=== PATIENT | female | born 1980 ===

== ENCOUNTER 2020-11-04 19:53 | Emergency (ER) | payer SELFPAY ==
[2020-11-04 20:07] VITALS: BP 140/70; PULSE 93; RESP 18; TEMP 36.7; O2SAT 99; BMI 31.7
--- NOTE | 2020-11-04 20:38 | ED_ITS ---
HPI - Extremity Injury (Lower) General Chief Complaint: Extremity Injury, Lower Stated Complaint: Leg pain Time Seen by Provider: 11/04/20 20:13 Source: patient Mode of arrival: ambulatory History of Present Illness HPI Narrative: 40-year-old female with a past medical history of sciatica presenting to the ED complaining of acute on chronic left-sided low back pain radiating down left lower extremity x2 weeks. Admits to similar symptoms in the past with her sciatic up. Denies new or recent injury/trauma or falls. Admits to associated numbness/tingling down LLE. Denies weakness, urinary incontinence/retention, fecal incontinence, fever, chills Related Data Allergies Allergy/AdvReac Type Severity Reaction Status Date / Time No Known Allergies Allergy Verified 11/04/20 20:07 Review of Systems Review of Systems: Constitutional: No Fever, No Chills Cardiovascular: No Chest Pain, No SOB Respiratory: No Cough Gastrointestinal: No Nausea, No Abdominal pain Genitourinary: No Hematuria, No Urinary Incontinence/retention Musculoskeletal: +back pain, No Myalgias, No Joint Swelling Skin: No Skin Lesions, No rash Neuro: No Weakness, + Numbness, + Paresthesias Yes all other systems are reviewed and are negative Neurologic: Denies Sensory deficit (Neuro) [facility] Past Medical History Attestation statement: The following information was validated with the patient. Medical History (Updated 11/04/20 @ 20:47 by RENETTA Franco) Sciatica Social History Social History Advance Directives: No Physical Exam Vital Signs: Vital Signs: Last Vital Signs Temp 98.1 F 11/04/20 20:07 Pulse 93 11/04/20 20:07 Resp 18 11/04/20 20:07 BP 140/70 H 11/04/20 20:07 Pulse Ox 99 11/04/20 20:07 Body Mass Index 31.7 Const: General: cooperative and healthy appearing Orientation/consciousness: patient oriented x3 Limitations: no limitations HENMT: Head: Yes normal to inspection and Yes atraumatic Ears: hearing grossly normal bilaterally General nose exam: Normal external nose present Face and sinus: Yes normal facial exam Eyes: General: appearance normal, both eyes and all related structures EOM: EOMs intact bilaterally Neck: Other: No midline cervical spinous tenderness/step-off Neck: Yes normal visual inspection Resp: Effort & Inspection: normal respiratory effort and no respiratory distress Cardio: Rate: regular rate GI: Inspection: Yes normal to inspection Palpation (GI): Soft to palpation, nontender, no guarding and not rigid Back/Spine/Pelvis: Other: No midline thoracic/lumbar spinous tenderness or jonathon p-off/deformity. + left-sided lower lumbar MSK/buttock tenderness to palpation Skin: Rashes: no rashes Wounds: no wounds Neuro: Other: No saddle anesthesia General: patient oriented x3, tone normal and moves all extremities Gait exam (Neuro): Normal gait present Motor exam (neuro): 5/5 motor strength present throughout Sensory Exam: No Sensory deficit (Neuro) Extrem: General: Yes normal to inspection MDM - Extremity Injury (Lower) MDM Narrative Medical decision making narrative: 40-year-old female with a past medical history of sciatica presenting to the ED complaining of acute on chronic left- sided low back pain radiating down left lower extremity x2 weeks. On exam VSS, NAD/ill-appearing, physical exam as above. No midline spinous tenderness throughout, no red flag symptoms. No saddle anesthesia. Likely MSK pain/sciatica. Low concern for cauda equina/cord compression Medical Records Attestation: I reviewed the patient's medical records. Lab Data Attestation: I reviewed the patient's lab results. Discharge Plan Discharge Clinical Impression: Sciatica Patient Disposition: Home, Self-Care
[2020-11-04] MEDS: Lidocaine 4 % Patch ADH..PATCH 1 PATCH TRANSDERMA (20:40)
[2020-11-04] MEDS: Cyclobenzaprine HCl 5 MG TABLET PO (20:41)
[2020-11-04] MEDS: Ketorolac Tromethamine 15 MG/ML VIAL 30 MG IM (20:41)
== END 2020-11-04 21:16 | disposition home or self-care (01) ==
PROVIDERS: Emergency Provider Emergency Medicine
DX: M54.42 Lumbago with sciatica, left side (principal)
CPT/HCPCS: 96372; 99283; 99284; J1885

== ENCOUNTER 2023-11-16 17:20 | Emergency (ER) | payer MEDICAID, SELFPAY ==
--- NOTE | 2023-11-16 17:28 | ED.GENADULT ---
HPI - General Adult General Chief complaint: Skin/Abscess/Foreign Body Stated complaint: Cyst Time Seen by Provider: 11/16/23 18:18 Source: patient Mode of arrival: ambulatory Limitations: no limitations History of Present Illness ED Provider: Vega Schrader PA-C HPI narrative: 43 yo female presents to the ER for evaluation of a very painful cyst on the upper portion of her buttocks that has been getting worse for the last 3-4 days. She recently got back from camping. Denies insect or tick bites in the area. She reports the pain is so severe she can barely sit. She denies any drainage from the area. No fever but she did have some chills. Denies history of pilonidal cyst in the past. Not diabetic. MD complaint: painful cyst on buttocks Onset (ago): day(s) (4) Location: buttocks Severity: severe Severity scale (1-10): 10 Quality: constant Pain Consistency: constant Relieving factors: none Exacerbating factors: movement Associated symptoms: denies other symptoms Related Data Previous Rx's ?Medication ?Instructions ?Recorded acetaminophen 500 mg tablet 500 mg PO Q6H PRN pain or fever 11/04/20 (Tylenol Extra Strength) #20 tabs cyclobenzaprine 5 mg tablet 5 mg PO Q8H PRN pain (scale score 11/04/20 7-10) 5 days #14 tabs lidocaine 5 % topical patch 1 patch topical DAILY PRN pain #30 11/04/20 (Lidoderm) ea naproxen 500 mg tablet 500 mg PO BID PRN pain 10 days #20 11/04/20 tabs cephalexin 500 mg capsule 500 mg PO Q6H 7 days #28 caps 11/16/23 doxycycline hyclate 100 mg tablet 100 mg PO BID #14 tabs 11/16/23 ibuprofen 600 mg tablet 600 mg PO Q8H PRN pain #10 tabs 11/16/23 oxycodone 5 mg tablet 5 mg PO Q6H PRN severe pain (scale 11/16/23 score 7-10) #10 tabs Allergies Allergy/AdvReac Type Severity Reaction Status Date / Time No Known Allergies Allergy Verified 11/16/23 17:31 Review of Systems Review of Systems: Yes all other systems are reviewed and are negative PMFSH Past Medical History Medical History (Updated 11/17/23 @ 00:01 by Background Danielle) Sciatica Social History Social History Advance Directives: No Advance Directives Information Provided: Yes Do you have a plan to hurt others: No Plan Physical Exam ED Vital Signs: Vital Signs - 24 hr 11/16/23 17:29 11/16/23 18:00 11/16/23 18:59 Temperature 97.4 F 98 F 98 F Pulse Rate 115 H 96 96 Respiratory Rate 18 18 18 Blood Pressure 130/77 126/77 126/77 Pulse Oximetry 98 98 98 Oxygen Delivery Method Room Air Room Air Room Air BMI result Body Mass Index 32.6 Appearance: Alert. Oriented X3. laying prone on the stretcher, uncomfortable HEENT: normal inspection CVS: Normal heart rate and rhythm. Pulses normal. Respiratory: No respiratory distress. Skin: Skin warm and dry. Normal skin color. Normal skin turgor. No rashes. On the gluteal cleft there is a 3cm area of tenderness and fluctuance surrounded by 5cm of erythema extending to the right buttock more than the left. mild induration Extremities: no peripheral edema x4. Neuro: Oriented X 3. No motor deficit. No sensory deficit. Course Course Course Narrative: This is an RME done by RENETTA Bertrand: Additional HPI, ROS, PE not included below will be deferred to primary provider. 43 year old female with concerns of cyst in buttocks crease for past 4 days. She rates the pain 10/10. Appearance: Alert.? Oriented X3.? No acute cardiopulmonary distress distress.? Head: Normocephalic, atraumatic, no step-offs or deformities Neck: Normal inspection.? Neck supple.? CVS: Pulses normal.? Respiratory: No respiratory distress.? Abdomen: Soft and nontender.? Skin: ? Normal skin color. Extremities: 5/5 strength to bilateral upper and lower extremities Neuro: Oriented X 3.? No motor deficit.? No sensory deficit. Medications Administered Discontinued Medications Generic Name Dose Route Start Last Admin Trade Name Freq PRN Reason Stop Dose Admin Cephalexin HCl 500 mg 11/16/23 18:19 11/16/23 18:23 Cephalexin 500 Mg Capsule PO 11/16/23 18:20 500 mg ONCE ONE Administration Doxycycline Monohydrate 100 mg 11/16/23 18:19 11/16/23 18:23 Doxycycline Monohydrate 100 Mg Capsule PO 11/16/23 18:20 100 mg ONCE ONE Administration Lidocaine HCl 2 ml 11/16/23 18:18 11/16/23 18:23 Lidocaine Hcl 1 % Mpf 2 Ml Vial INFILTRATI 11/16/23 18:19 2 ml ONCE ONE Administration Oxycodone HCl 5 mg 11/16/23 18:19 11/16/23 18:23 Oxycodone Hcl Immed Release 5 Mg Tablet PO 11/16/23 18:20 5 mg ONCE ONE Administration Procedures Abscess I/D Site: ruma-rectal Local Anesthetic: lidocaine 1% Amount of anesthesia used (mL): 2 Technique: incised with blade Sent for culture/gram staining?: No Irrigation: Yes Packing used?: iodoform Medical Decision Making Medical Decision Making MDM Narrative: 43 yo female presenting with painful cyst on her buttocks x4 days. exam and clinical presentation are c/w and inflamed and infected pilonidal cyst. she was agreeable to I&D today. copious amounts of foul smelling purulent material was expressed and cyst was packed. started on keflex and doxy for broad coverage given associated cellultiis. pt tolerated procedure well. stable for d/c home with abx, pain control and surgery follow up. 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 Prescription Management I considered prescription management with: Pain Medication and Antibiotic Critical Care Time Critical Care Time Critical Care Time: No Discharge Plan Discharge Clinical Impression: Infected pilonidal cyst Patient Disposition: Home, Self-Care Instructions: Pilonidal Cyst (ED), Pilonidal Cyst Excision (DC) Prescriptions: New doxycycline hyclate 100 mg tablet 100 mg PO BID Qty: 14 0RF cephalexin 500 mg capsule 500 mg PO Q6H 7 Days Qty: 28 0RF ibuprofen 600 mg tablet 600 mg PO Q8H PRN (Reason: pain) Qty: 10 0RF oxycodone 5 mg tablet 5 mg PO Q6H PRN (Reason: severe pain (scale score 7-10)) Qty: 10 0RF Rx Instructions: Partial Fill upon patient request. No Action lidocaine [Lidoderm] 5 % adhesive patch,medicated 1 patch topical DAILY MDD remove after 12 hours PRN (Reason: pain) Qty: 30 0RF Rx Instructions: leave on most painful area for up to 12 hrs cyclobenzaprine 5 mg tablet 5 mg PO Q8H PRN (Reason: pain (scale score 7-10)) 5 Days Qty: 14 0RF acetaminophen [Tylenol Extra Strength] 500 mg tablet 500 mg PO Q6H PRN (Reason: pain or fever) Qty: 20 0RF naproxen 500 mg tablet 500 mg PO BID PRN (Reason: pain) 10 Days Qty: 20 0RF Referrals: [facility] [place] General Surgeons [Provider Group] (Infected pilonidal cyst) Stand Alone Forms: Work/School Release Interventions: ED Discharge Assessment Last Done: 11/16/23 18:59 Discharge Date/Time: 11/16/23 19:00 Print Language: Syriac
[2023-11-16 17:29] VITALS: BP 130/77; PULSE 115; RESP 18; TEMP 36.3; O2SAT 98; BMI 32.6
[2023-11-16 18:00] VITALS: BP 126/77; PULSE 96; RESP 18; TEMP 36.6; O2SAT 98
[2023-11-16] MEDS: Lidocaine HCl 1 % MPF 2 ML VIAL INFILTRATI (18:23)
[2023-11-16] MEDS: cephALEXin 500 MG CAPSULE PO (18:23)
[2023-11-16] MEDS: Doxycycline Monohydrate 100 MG CAPSULE PO (18:23)
[2023-11-16] MEDS: oxyCODONE HCl Immed Release 5 MG TABLET PO (18:23)
[2023-11-16 18:59] VITALS: BP 126/77; PULSE 96; RESP 18; TEMP 36.6; O2SAT 98
== END 2023-11-16 19:00 | disposition home or self-care (01) ==
PROVIDERS: Emergency Provider Emergency Medicine
DX: L05.91 Pilonidal cyst without abscess (principal)
CPT/HCPCS: 10080; 99283; 99284